=== PATIENT | female | born 1955 | race Two or more races ===

== ENCOUNTER 2023-07-24 11:42 | Emergency (ER) | payer MEDICARE, OTHER ==
[~2023-07-24] VITALS: Ht 170.2 cm; Wt 78.6 kg
[2023-07-24 11:45] VITALS: O2SAT 98
[2023-07-24] MEDS ORDERED: IOHEXOL-350 100 ML BOTTLE ONE (12:11)
[2023-07-24] MEDS ORDERED: TENECTEPLASE 50MG/VIAL IV ONE (12:45)
[2023-07-24] MEDS ORDERED: *TENECTEPLASE FOR AIS XX SCH (12:45)
[2023-07-24] MEDS ORDERED: TENECTEPLASE 50MG/VIAL IV NR (12:45)
[2023-07-24 13:05] LABS: BASOPHILS % 0.9 % (0.0-2.0); EOSINOPHILS % 1.7 % (0.0-5.0)
[2023-07-24 13:07] LABS: HEMATOCRIT. 43.7 % (36.0-48.0); HEMOGLOBIN. 15.1 g/dL (12.0-16.0); LYMPHOCYTES % 36.6 % (20.0-50.0); MEAN CORPUSCULAR HGB CONC 34.6 g/dL (31.0-37.0); MEAN CORPUSCULAR VOLUME 89.5 fL (81.0-99.0); MEAN PLATELET VOLUME 8.4 fl (7.4-10.4); NEUTROPHILS % 51.8 % (40.0-76.0); PLATELET 292 x1000/uL (130-400); RED BLOOD CELL COUNT 4.88 mill/uL (4.2-5.4); RED CELL DISTRIBUTION WIDTH 13.6 % (11.6-14.6); WHITE BLOOD COUNT 7.5 x1000/uL (4.5-11.0)
[2023-07-24] MEDS ORDERED: NICARDIPINE 50 MG in SODIUM CHLORIDE 0.9% 230 ML IV STA (13:20)
[2023-07-24] MEDS ORDERED: NICARDIPINE 40MG/200ML PREMIX 200 ML IV NR (13:20)
[2023-07-24 13:23] LABS: CHLORIDE 97 mEq/L (98-107); INDEX HEMOLYSI 1 (1-3); INDEX ICTERIC 1 (1-4); INDEX LIPEMIC 1 (1-3); SODIUM 133 mEq/L (136-145)
[2023-07-24 13:28] LABS: POTASSIUM 2.8 mEq/L (3.5-5.1)
[2023-07-24 13:31] LABS: ALANINE AMINOTRANSFERASE 53 IU/L (13-61); ALBUMIN 4.1 g/dL (3.4-5.0); ASPARTATE AMINOTRANSFERASE 33 IU/L (15-37); BILIRUBIN TOTAL 0.6 mg/dL (0.1-1.0); CALCIUM 9.1 mg/dL (8.5-10.1); CREATININE 0.7 mg/dL (0.6-1.3); GLUCOSE 112 mg/dL (70-105); PROTEIN TOTAL 7.8 g/dL (6.0-8.3); UREA NITROGEN BLOOD 19 mg/dL (7-21)
[2023-07-24] MEDS ORDERED: MAGNESIUM 2 G PREMIX 50 ML IV ONE (13:45)
[2023-07-24] MEDS ORDERED: KCL 20MEQ/100ML PREMIX 100 ML IV ONE (13:45)
[2023-07-24] MEDS ORDERED: POTASSIUM CHLORIDE INJ 40 MEQ in DEXT 5% WATER 500 ML IV ONE (13:45)
[2023-07-24 13:51] LABS: TROPONIN I HIGH SENSITIVITY 100 ng/L (<54)
[2023-07-24 14:18] LABS: CLARITY URINE CLEAR (CLEAR); COLOR URINE YELLOW (YELLOW); GLUCOSE URINE NEGATIVE (NEGATIVE); KETONES URINE NEGATIVE (NEGATIVE); LEUKOCYTE ESTERASE URINE NEGATIVE (NEGATIVE); NITRITE URINE NEGATIVE (NEGATIVE); OCCULT BLOOD URINE NEGATIVE (NEGATIVE); PROTEIN URINE NEGATIVE (NEGATIVE); SPECIFIC GRAVITY URINE 1.025 (1.005-1.030); UROBILINOGEN URINE 0.2 E.U./dL (0.2-1.0)
[2023-07-24 14:20] LABS: CARBON DIOXIDE 26 mEq/L (21-32)
[2023-07-24 14:27] VITALS: RESP 18; TEMP 98.4
[2023-07-24 14:38] VITALS: BP 170/66; PULSE 72
== END 2023-07-24 14:45 | disposition short-term general hospital (02) ==
LOC: ER 11:42
DX: I63.9 Cerebral infarction, unspecified (principal); I10 Essential (primary) hypertension; E87.6 Hypokalemia; R77.8 Other specified abnormalities of plasma proteins; Z98.890 Other specified postprocedural states; Z88.0 Allergy status to penicillin
CPT/HCPCS: 99291; 70496; 96365; 71045; 96375; 80053; 81003; 85025; 85610; 84484; 36415; 70498; 93005; 70450; J2997; Q9967; J3480; J3475; J3490; J7050; J7060